=== PATIENT | female | born 1985 | race Caucasian/White ===

== ENCOUNTER 2017-11-07 07:19 | Emergency (ER) | payer SELFPAY ==
[~2017-11-07] VITALS: Ht 157.5 cm; Wt 100.0 kg
[~2017-11-07 07:19] MED LIST: ALBU8I INH; ATOR40TA PO; CONTOUR1 XX; FURO1TAB93 PO; LEVO75TA3 PO; LISI2.5T3 PO; NOVOINJ3 SQ; NOVOLOGP2 SQ; Z.0.INSULINSYR SQ
[2017-11-07 07:23] VITALS: BP 173/85; PULSE 87; RESP 19; TEMP 98; O2SAT 99
[2017-11-07] MEDS ORDERED: NOVOLOGP2 SQ (07:42)
[2017-11-07] MEDS ORDERED: ONDANSETRON ODT 4 MG TAB PO ONE (08:00)
[2017-11-07] MEDS ORDERED: LISINOPRIL 5 MG TAB PO ONE (08:00)
[2017-11-07] MEDS ORDERED: SODIUM CHLOR 0.9% 1000 ML INJ 1,000 ML IV ONE (08:00)
--- NOTE | 2017-11-07 08:05 | PD ---
HPI Chief Complaint: GI Complaint Time Seen by Provider: 07:31 Travel History International Travel<30 days: No Contact w/Intl Traveler<30days: No Traveled to known affect area: No History of Present Illness HPI Patient is a 32-year-old female comes in complaining of nausea and vomiting since yesterday morning. Pain with vomiting. She has had diarrhea. She denies any blood in her vomit. She does report several sick contacts with similar symptoms. She ate some scrambled eggs with cheese this morning without vomiting. She says she came in because she is still feeling nauseous. She is a history of diabetes and hypertension and has not had her medications in several months due to insurance reasons. She denies chest pain or shortness of breath. She says she had a temperature that was 99 point something and took some Tylenol. Severity is mild to moderate. PFSH Past Medical History Anxiety: Yes Depression: Yes Cancer: No Cardiovascular Problems: No Diabetes: Yes Patient Takes Glucophage: No Diminished Hearing: No Endocrine: Yes Gastrointestinal Disorders: No Genitourinary: No Hypertension: Yes Inguinal Hernia: Yes Implanted Vascular Access Dvce: No Musculoskeletal: Yes Neurologic: No Psychiatric: Yes Reproductive: No Respiratory: No Immunizations Current: No Thyroid Disease: Yes (hypo) ?: Not LMP: 10/14/17 Menopausal: No : 2 Para: 0 Miscarriage: 2 : 0 Past Surgical History Abdominal Surgery: Yes (double hernia) Ear Surgery: No Endocrine Surgery: No Eye Surgery: No Genitourinary Surgery: No Gynecologic Surgery: No Oral Surgery: No Pacemaker: No Other Surgery: Yes Social History Alcohol Use: No Tobacco Use: No Substance Use: Yes (MARIJUANA last 2 days ago ) Allergies-Medications (Allergen,Severity, Reaction): Coded Allergies: morphine (Unverified Allergy, Severe, Anaphylaxis, 11/07/17) penicillin G (Unverified Allergy, Severe, Hives, 11/07/17) tramadol (Unverified Allergy, Severe, Hives, 11/07/17) Reported Meds & Prescriptions Reported Meds & Active Scripts Active Metformin (Metformin HCl) 500 Mg Tab 500 Mg PO BIDPC Reported Novolog Inj (Insulin Aspart) 1,000 Unit/10 Ml Vial 0 SQ DIRECTED Sliding Scale as directed. Review of Systems Except as stated in HPI: all other systems reviewed are Neg General / Constitutional: No: Fever, Chills HENT: No: Headaches, Lightheadedness Cardiovascular: No: Chest Pain or Discomfort Respiratory: No: Shortness of Breath Gastrointestinal: Positive: Nausea, Vomiting, Diarrhea, No: Abdominal Pain Genitourinary: No: Dysuria Musculoskeletal: No: Myalgias, Edema Skin: No Rash, No Change in Pigmentation Neurologic: No: Weakness, Dizziness Physical Exam Narrative GENERAL: Awake and alert, in no acute distress. SKIN: Focused skin assessment warm/dry. HEAD: Atraumatic. Normocephalic. EYES: Pupils equal and round. No scleral icterus. ENT: Mucous membranes pink and moist. NECK: Trachea midline. No JVD. CARDIOVASCULAR: Regular rate and rhythm. No murmur appreciated. RESPIRATORY: No accessory muscle use. Clear to auscultation. Breath sounds equal bilaterally. GASTROINTESTINAL: Abdomen soft, non-tender, nondistended. MUSCULOSKELETAL: No obvious deformities. No clubbing. No cyanosis. No edema. NEUROLOGICAL: Awake and alert. No obvious cranial nerve deficits. Motor grossly within normal limits. Normal speech. PSYCHIATRIC: Appropriate mood and affect; insight and judgment normal. Data Data Last Documented VS Vital Signs Date Time Temp Pulse Resp B/P (MAP) Pulse Ox O2 Delivery O2 Flow Rate FiO2 11/07/17 10:10 69 18 143/84 (103) 99 11/07/17 07:23 98.0 Orders Orders Complete Blood Count With Diff (11/07/17 07:57) Basic Metabolic Panel (Bmp) (11/07/17 07:57) Iv Access Insert/Monitor (11/07/17 07:57) Sodium Chlor 0.9% 1000 Ml Inj (Ns 1000 M (11/07/17 08:00) Ondansetron Odt (Zofran Odt) (11/07/17 08:00) Lisinopril (Prinivil) (11/07/17 08:00) Insulin Human Regular Inj (Novolin R Inj (11/07/17 08:45) Urinalysis - C+S If Indicated (11/07/17 10:41) Ed Discharge Order (11/07/17 11:43) Labs Laboratory Tests Test 11/07/17 08:16 11/07/17 10:49 White Blood Count 6.0 TH/MM3 Red Blood Count 5.04 MIL/MM3 Hemoglobin 14.5 GM/DL Hematocrit 42.0 % Mean Corpuscular Volume 83.4 FL Mean Corpuscular Hemoglobin 28.8 PG Mean Corpuscular Hemoglobin Concent 34.6 % Red Cell Distribution Width 12.9 % Platelet Count 261 TH/MM3 Mean Platelet Volume 8.3 FL Neutrophils (%) (Auto) 70.8 % Lymphocytes (%) (Auto) 20.6 % Monocytes (%) (Auto) 6.1 % Eosinophils (%) (Auto) 1.8 % Basophils (%) (Auto) 0.7 % Neutrophils # (Auto) 4.3 TH/MM3 Lymphocytes # (Auto) 1.2 TH/MM3 Monocytes # (Auto) 0.4 TH/MM3 Eosinophils # (Auto) 0.1 TH/MM3 Basophils # (Auto) 0.0 TH/MM3 CBC Comment DIFF FINAL Differential Comment Blood Urea Nitrogen 13 MG/DL Creatinine 1.02 MG/DL Random Glucose 424 MG/DL Calcium Level 8.6 MG/DL Sodium Level 136 MEQ/L Potassium Level 3.7 MEQ/L Chloride Level 103 MEQ/L Carbon Dioxide Level 26.2 MEQ/L Anion Gap 7 MEQ/L Estimat Glomerular Filtration Rate 64 ML/MIN Urine Color YELLOW Urine Turbidity HAZY Urine pH 6.0 Urine Specific [place] 1.035 Urine Protein NEG mg/dL Urine Glucose (UA) 1000 mg/dL Urine Ketones NEG mg/dL Urine Occult Blood MOD Urine Nitrite NEG Urine Bilirubin NEG Urine Urobilinogen LESS THAN 2.0 MG/DL Urine Leukocyte Esterase NEG Urine RBC 1 /hpf Urine WBC 1 /hpf Urine Squamous Epithelial Cells 6 /hpf Microscopic Urinalysis Comment CULT NOT INDICATED MDM Medical Decision Making Medical Screen Exam Complete: Yes Emergency Medical Condition: Yes Medical Record Reviewed: Yes Differential Diagnosis Gastroenteritis versus dehydration versus electrolyte abnormality Narrative Course Patient is a 32-year-old female who comes in complaining of nausea and vomiting. Exam shows abdomen to be soft and nontender. IV cannot be established, and patient refused any further attempts. Lab work was drawn, shows elevated glucose, no other acute abnormalities. Patient given p.o. Zofran. She has been able to orally rehydrate herself. She was given a dose of subcutaneous insulin. Her glucose level did improve. She is advised follow-up with the [facility]. Given a prescription for metformin which is free at [employer] since she cannot afford her insulin. Advised to follow-up and get back on a proper regimen for her blood pressure as well as diabetes. Advised return anytime for any worsening symptoms. Diagnosis Primary Impression: Nausea & vomiting Qualified Codes: R11.2 - Nausea with vomiting, unspecified Additional Impression: Hyperglycemia Referrals: [facility] call for appointment Patient Instructions: Acute Nausea and Vomiting (ED), Diabetic Hyperglycemia ( ED), General Instructions Additional Instructions: Drink plenty of water. Eat a bland diet. Follow up with [facility]. Return to the ED as needed for any worsening symptoms. Scripts Lisinopril (Lisinopril) 5 Mg Tab 5 MG PO DAILY for Blood Pressure Management, #30 TAB 0 Refills Prov: Rani Masters MD 11/07/17 Metformin (Metformin) 500 Mg Tab 500 MG PO BIDPC for Blood Sugar Management, #60 TAB 0 Refills Prov: Rani Masters MD 11/07/17 Disposition: 01 DISCHARGE HOME Condition: Stable Rani Masters MD November 07, 2017 08:05
[2017-11-07] MEDS ORDERED: INSULIN HUMAN REGULAR 1,000 UNITS/10 ML VIAL SQ ONE (08:45)
[2017-11-07 08:46] LABS: AUTOMATED NEUTROPHIL # 4.3 TH/MM3 (1.8-7.7); BASOPHIL % 0.7 % (0.0-2.0); EOSINOPHIL # 0.1 TH/MM3 (0-0.4); EOSINOPHIL % 1.8 % (0.0-4.0); HEMOGLOBIN 14.5 GM/DL (11.6-15.3); LYMPH % 20.6 % (9.0-44.0); LYMPHOCYTE # 1.2 TH/MM3 (1.0-4.8); MEAN CELL VOLUME 83.4 FL (80.0-100.0); MEAN CORPUSCULAR HEMOGLOBIN 28.8 PG (27.0-34.0); MEAN CORPUSCULAR HGB CONC 34.6 % (32.0-36.0); MEAN PLATELET VOLUME 8.3 FL (7.0-11.0); MONO % 6.1 % (0.0-8.0); MONOCYTE # 0.4 TH/MM3 (0-0.9); NEUT % 70.8 % (16.0-70.0); PLATELET COUNT 261 TH/MM3 (150-450); RED BLOOD COUNT 5.04 MIL/MM3 (4.00-5.30); RED CELL DISTRIBUTION WIDTH 12.9 % (11.6-17.2)
[2017-11-07 09:33] LABS: BICARBONATE 26.2 MEQ/L (21.0-32.0); CALCIUM 8.6 MG/DL (8.5-10.1); CREATININE 1.02 MG/DL (0.50-1.00)
[2017-11-07 10:10] VITALS: BP 143/84; PULSE 69; RESP 18; O2SAT 99
[2017-11-07 11:13] LABS: BILIRUBIN, URINE NEG (NEG); BLOOD, URINE MOD (NEG); GLUCOSE,URINE 1000 mg/dL (NEG); KETONE, URINE NEG (NEG); NITRITE,URINE NEG (NEG); SQUAMOUS EPITHELIAL CELL URINE 6 /hpf (0-5); URINE COLOR YELLOW (YELLW/STRAW); URINE LEUKOCYTE ESTERASE NEG (NEG)
[2017-11-07] MEDS ORDERED: METF500T PO (11:42)
[2017-11-07] MEDS ORDERED: LISI-519 PO (12:18)
== END 2017-11-07 12:21 | disposition home or self-care (01) ==
LOC: NEPC 07:19
DX: E11.65 Type 2 diabetes mellitus with hyperglycemia (principal); F12.90 Cannabis use, unspecified, uncomplicated; Z79.4 Long term (current) use of insulin
CPT/HCPCS: 80048; 81001; 85025; 96372; 99283; J1815